=== PATIENT | female | born 1960 | race American Indian/Alaskan Native ===

== ENCOUNTER 2018-02-08 08:36 | Day surgery (SDC) | payer MEDICARE ==
[~2018-02-08 08:36] MED LIST: NACL 0.9% 1000 ML 1,000 ML ONE
--- NOTE | 2018-02-08 09:51 | Anesthesia Consultation ---
Anesthesia Consult and Med Hx Date of service: 02/08/18 - Airway Anesthetic Teeth Evaluation: Good, Crowns ROM Head & Neck: Adequate Mental/Hyoid Distance: Adequate Mallampati Class: Class I Intubation Access Assessment: Good - Pulmonary Exam CTA: Yes - Cardiac Exam Cardiac Exam: RRR - Pre-Operative Health Status ASA Pre-Surgery Classification: ASA3 Proposed Anesthetic Plan: MAC - Pulmonary Hx Smoking: Yes Hx Asthma: Yes - Cardiovascular System Hx Hypertension: Yes - Central Nervous System Hx Back Pain: Yes - Endocrine Hx Non-Insulin Dependent Diabetes: Yes - Hematic Hx Anemia: Yes
--- NOTE | 2018-02-08 09:51 | Anesthesia Day of Surgery ---
Anesthesia Day of Surgery - Day of Surgery Patient Examined: Yes Patient H&P Reviewed: Yes Patient is NPO: Yes
[2018-02-08] MEDS ORDERED: NACL 0.9% 1000 ML 1,000 ML IV SCH (10:00)
[2018-02-08] MEDS ORDERED: XYLOCAINE MPF 2% ONE ×2 (10:38→11:00)
[2018-02-08] MEDS ORDERED: DIPRIVAN 10 MG/ML IV ONE ×2 (10:39)
[2018-02-08] MEDS ORDERED: WATER FOR IRRIG STERILE IR ONE (11:07)
--- NOTE | 2018-02-08 11:30 | Operative Report ---
Operative Report Operative Report: Date of procedure: 02/08/2018 Procedure: Colonoscopy with snare polypectomy, submucosal injection and hemoclip application.. Attending physician: Gelacio Weeks MD [employer] Manager: Gelacio Weeks MD Indication: Patient is a 57-year-old female who presents for screening colonoscopy. The colonoscopy serves to evaluate patient for colorectal cancer screening. Consent: Informed consent was obtained after advising the patient and family regarding nature of this procedure, its indications, potential benefits as well as possible complications including but not limited to bleeding perforation and adverse reaction to medication, infection as well as other cardiopulmonary complications. An informed written and verbal consent was then obtained after due opportunity was provided for questions and answers. Monitoring: Patient was monitored continuously with pulse oximetry and electrocardiographic recordings as well as blood pressure recordings. Vital signs remained stable throughout this procedure with no untoward events. Preoperative assessment: Patient was assessed immediately prior to this procedure for capacity to tolerate monitored anesthesia care and moderate sedation as well as general anesthesia. Patient's ASA classification is 2, Mallampati class is 2, Hyomental distance is 3. Instrument: MMISn video colonoscope Medications: Propofol given intravenously in divided doses. For details please refer to anesthesia records. Description of procedure: Patient was placed in the left lateral decubitus position after achieving sedation, a digital rectal examination was performed following which the colonoscope was introduced into the anal verge and advanced to the cecum which was identified by the cecal valve, the appendiceal orifice, as well as by the cecal strap and direct transillumination. The colonoscope was subsequently withdrawn with careful inspection of all mucosal surfaces. Patient tolerated this procedure well and was subsequently taken to the recovery room. The following findings were noted. Findings: Patient had diverticula of moderate severity involving the sigmoid and descending colon. In the cecum patient had a flat linear polyp which measured about 1.5 cm whch was injected in the submucosal space and removed by snare electrocautery and the tip of the polyp was removed by avulsion using hot biopsy forceps. The edges of the polypectomy site was ablated and the polypectomy site defect was closed with 2 hemoclips.The rest of the colon was normal. On the retroflex view at the anal verge, patient had internal hemorrhoids. Impression: Cecal polyp status post submucosal injection, snare electrocautery and hemoclip application. Diverticulosis of the colon. Internal hemorrhoids. Plan: Follow pathology report. High-fiber diet. Repeat colonoscopy in 5 years.
--- NOTE | 2018-02-08 11:31 | Discharge Summary ---
Short Stay Discharge Plan Activity: advance as tolerated Weight Bearing Status: Weight Bear as Tolerated Diet: regular Follow up with: ASHLEIGH HILL MD [Other] - 7 Days
[2018-02-08 11:49] VITALS: BP 166/89
--- NOTE | 2018-02-08 14:50 | Post Anesthesia Evaluation ---
- Post Anesthesia Evaluation Patient Participated: Yes Airway Patent: Yes Stable Respiratory Function: Yes Nausea/Vomiting: No Temp > 96.8F: Yes Pain Manageable: Yes Adequeate Hydration: Yes Anesthesia Complications: No
== END 2018-02-08 08:37 | disposition home or self-care (01) ==
LOC: GIO 08:36
PROVIDERS: ATTEND Internal Medicine Gastroenterology
DX: D12.0 Benign neoplasm of cecum (principal); K59.00 Constipation, unspecified; K57.30 Diverticulosis of large intestine without perforation or abscess without bleeding; K64.8 Other hemorrhoids; K21.9 Gastro-esophageal reflux disease without esophagitis; I10 Essential (primary) hypertension; E11.9 Type 2 diabetes mellitus without complications; J45.909 Unspecified asthma, uncomplicated; F17.200 Nicotine dependence, unspecified, uncomplicated
CPT/HCPCS: 45381; 45385; 45388; 82962; 88305; J2704; J7030